=== PATIENT | female | born 1935 | race Caucasian/White ===

== ENCOUNTER 2017-01-25 12:47 | Emergency (ER) | payer MEDICARE, OTHER ==
[~2017-01-25] VITALS: Ht 152.4 cm; Wt 55.0 kg
[~2017-01-25 12:47] MED LIST: ALBUTEROL SUL0.083 % IN; CIPROFLOXACN500 MG PO; DULERA1 AE1 IN; DUONEB IN; FLEXERIL5 MG OR; INVANZ1 GM IJ; IPRATROPIU0.5 MG/3 M NEB; LEVOTHYROXIN100 MCG PO; MACRODANTIN100 MG PO; MYRBETRIQ25 MG PO; NAPROSYN500 MG OR; PREDNISONE10 MG PO; PROTONIX40 M2 PO; ROBITUSSIN10 ML PO; SYNTHROID150 MCG PO; TAM75CAP PO; ZITHROMAX250 MG PO; ZOFRAN4 MG/TAB PO; ZOLOFT50 MG OR; ZOLOFT50 MG PO
[2017-01-25 13:26] LABS: HEMATOCRIT 34.2 % (37.0-47.0); HEMOGLOBIN 11.8 g/dl (12.0-16.0); IMMATURE GRANULOCYTES 0.6 % (0.0-1.0); MEAN CELL VOLUME 95.8 fL CALC (80.0-100.0); MEAN CORPUSCULAR HGB 33.1 pG CALC (26.0-32.0); MEAN CORPUSCULAR HGB CONC 34.5 g/L CALC (32.0-36.0); NEUT# 6.29 thou/uL (2.00-7.15); RED BLOOD COUNT 3.57 mill/uL (4.20-5.60); RED CELL DISTRI WIDTH 12.5 % (11.5-15.5)
[2017-01-25 13:39] LABS: ALBUMIN 3.8 g/dL (3.2-5.0); ALKALINE PHOSPHATASE 82 u/l (38-126); ANION GAP 12 (6-22 (CALC)); BILIRUBIN, TOTAL 0.5 mg/dL (0.0-1.4); BUN 12 mg/dL (8-23); BUN/CREATININE RATIO 17 (12-20 (CALC)); CALCIUM 9.8 mg/dL (8.4-10.2); CARBON DIOXIDE 27 mmol/l (22-30); CHLORIDE 99 mmol/l (95-108); CREATININE 0.7 mg/dL (0.5-1.0); GFR > 60 ML/MIN (>=60 (CALC)); GFR FOR AFR.AMER. > 60 ML/MIN (>=60 (CALC)); GLUCOSE 129 mg/dL (82-115); POTASSIUM 4.1 mmol/l (3.5-5.1); SGOT/AST 29 u/l (9-36); SGPT/ALT 31 u/l (11-66); SODIUM 133 mmol/l (137-146); TOTAL PROTEIN 7.5 g/dL (6.3-8.2)
[2017-01-25 14:03] LABS: URINE BILIRUBIN - DIPSTICK NEGATIVE (NEGATIVE); URINE BLOOD DIPSTICK NEGATIVE (NEGATIVE); URINE COLOR YELLOW; URINE GLUCOSE - DIPSTICK NEGATIVE (NEGATIVE); URINE KETONE NEGATIVE (NEGATIVE); URINE LEUK ESTERASE NEGATIVE (NEGATIVE); URINE PH 6.5 (4.5-8.0); URINE PROTEIN - DIPSTICK NEGATIVE (NEG-TRACE); URINE UROBILINOGEN - DIPSTICK 0.2 E.U./dL (0.2)
[2017-01-25 14:11] LABS: URINE CLARITY TURBID; URINE NITRITE - DIPSTICK POSITIVE (Negative)
[2017-01-25 14:20] LABS: URINE BACTERIA FEW hpf; URINE SQUAMOUS EPITHELIAL CELL FEW EPI/hpf (0-FEW)
[2017-01-25] MEDS ORDERED: PYRIDIUM200 MG PO (14:28)
[2017-01-25] MEDS ORDERED: MACROBID100 MG PO (14:28)
[2017-01-25] MEDS ORDERED: BACTRIM DS1 TAB PO (14:28)
[2017-01-25 14:31] VITALS: BP 153/78
== END 2017-01-25 15:28 | disposition home or self-care (01) ==
LOC: ED 12:47
PROVIDERS: Emergency Medicine
DX: N39.0 Urinary tract infection, site not specified (principal); R53.1 Weakness; B96.20 Unspecified Escherichia coli [E. coli] as the cause of diseases classified elsewhere; R30.0 Dysuria; R35.0 Frequency of micturition
CPT/HCPCS: J0692

== ENCOUNTER 2017-02-06 09:13 | Emergency (ER) | payer MEDICARE, OTHER ==
[~2017-02-06] VITALS: Ht 152.4 cm; Wt 50.0 kg
[~2017-02-06 09:13] MED LIST changes: +BACTRIM DS1 TAB PO; +MACROBID100 MG PO; +PYRIDIUM200 MG PO
[2017-02-06 09:21] VITALS: BP 109/58
[2017-02-06 09:59] LABS: ALBUMIN 3.9 g/dL (3.2-5.0); ALKALINE PHOSPHATASE 68 u/l (38-126); ANION GAP 13 (6-22 (CALC)); BILIRUBIN, TOTAL 0.5 mg/dL (0.0-1.4); BUN 22 mg/dL (8-23); BUN/CREATININE RATIO 29 (12-20 (CALC)); CALCIUM 9.3 mg/dL (8.4-10.2); CARBON DIOXIDE 26 mmol/l (22-30); CHLORIDE 100 mmol/l (95-108); CREATININE 0.8 mg/dL (0.5-1.0); GFR > 60 ML/MIN (>=60 (CALC)); GFR FOR AFR.AMER. > 60 ML/MIN (>=60 (CALC)); GLUCOSE 112 mg/dL (82-115); POTASSIUM 4.1 mmol/l (3.5-5.1); SGOT/AST 19 u/l (9-36); SGPT/ALT 24 u/l (11-66); SODIUM 135 mmol/l (137-146)
[2017-02-06 10:01] LABS: HEMATOCRIT 32.8 % (37.0-47.0); HEMOGLOBIN 11.5 g/dl (12.0-16.0); MANUAL DIFFERENTIAL YES; MEAN CELL VOLUME 96.2 fL CALC (80.0-100.0); MEAN CORPUSCULAR HGB 33.7 pG CALC (26.0-32.0); MEAN CORPUSCULAR HGB CONC 35.1 g/L CALC (32.0-36.0); PLATELET COUNT 257 thou/uL (130-400); RED BLOOD COUNT 3.41 mill/uL (4.20-5.60); RED CELL DISTRI WIDTH 12.1 % (11.5-15.5)
[2017-02-06 10:02] LABS: BAND 2 % (0-8)
[2017-02-06 10:11] LABS: MYOGLOBIN 42 ng/mL (0 - 62)
[2017-02-06 11:05] LABS: URINE BILIRUBIN - DIPSTICK NEGATIVE (NEGATIVE); URINE BLOOD DIPSTICK NEGATIVE (NEGATIVE); URINE CLARITY CLEAR; URINE COLOR YELLOW; URINE GLUCOSE - DIPSTICK NEGATIVE (NEGATIVE); URINE KETONE NEGATIVE (NEGATIVE); URINE LEUK ESTERASE NEGATIVE (NEGATIVE); URINE NITRITE - DIPSTICK NEGATIVE (Negative); URINE PROTEIN - DIPSTICK NEGATIVE (NEG-TRACE); URINE UROBILINOGEN - DIPSTICK 0.2 E.U./dL (0.2)
== END 2017-02-06 14:54 | disposition home or self-care (01) ==
LOC: ED 09:13
PROVIDERS: Emergency Medicine
DX: R53.1 Weakness (principal); I10 Essential (primary) hypertension; J44.9 Chronic obstructive pulmonary disease, unspecified; B96.20 Unspecified Escherichia coli [E. coli] as the cause of diseases classified elsewhere; R94.31 Abnormal electrocardiogram [ECG] [EKG]; Z85.43 Personal history of malignant neoplasm of ovary
CPT/HCPCS: J1335

== ENCOUNTER 2017-03-05 10:31 | Inpatient (IN) | payer MEDICARE, OTHER ==
[~2017-03-05] VITALS: Ht 152.4 cm; Wt 56.8 kg
[2017-03-05 11:26] LABS: HEMATOCRIT 32.1 % (37.0-47.0); IMMATURE GRANULOCYTES 0.3 % (0.0-1.0); MEAN CELL VOLUME 93.9 fL CALC (80.0-100.0); MEAN CORPUSCULAR HGB 32.2 pG CALC (26.0-32.0); MEAN CORPUSCULAR HGB CONC 34.3 g/L CALC (32.0-36.0); NEUT# 11.28 thou/uL (2.00-7.15); RED BLOOD COUNT 3.42 mill/uL (4.20-5.60); RED CELL DISTRI WIDTH 13.7 % (11.5-15.5)
[2017-03-05] MEDS ORDERED: AZO CRANBERY UR1 CAP PO (11:31)
[2017-03-05 11:50] LABS: ALBUMIN 3.5 g/dL (3.2-5.0); ALKALINE PHOSPHATASE 68 u/l (38-126); ANION GAP 14 (6-22 (CALC)); BILIRUBIN, TOTAL 0.6 mg/dL (0.0-1.4); BUN 15 mg/dL (8-23); BUN/CREATININE RATIO 23 (12-20 (CALC)); CALCIUM 9.1 mg/dL (8.4-10.2); CARBON DIOXIDE 24 mmol/l (22-30); CHLORIDE 98 mmol/l (95-108); CREATININE 0.7 mg/dL (0.5-1.0); GFR > 60 ML/MIN (>=60 (CALC)); GFR FOR AFR.AMER. > 60 ML/MIN (>=60 (CALC)); GLUCOSE 130 mg/dL (82-115); SGOT/AST 26 u/l (9-36); SGPT/ALT 33 u/l (11-66); SODIUM 132 mmol/l (137-146); TOTAL PROTEIN 7.6 g/dL (6.3-8.2)
[2017-03-05 12:03] LABS: MYOGLOBIN 22 ng/mL (0 - 62)
[2017-03-05 12:57] LABS: URINE BILIRUBIN - DIPSTICK NEGATIVE (NEGATIVE); URINE CLARITY CLEAR; URINE COLOR YELLOW; URINE GLUCOSE - DIPSTICK NEGATIVE (NEGATIVE); URINE KETONE NEGATIVE (NEGATIVE); URINE LEUK ESTERASE NEGATIVE (NEGATIVE); URINE PROTEIN - DIPSTICK NEGATIVE (NEG-TRACE); URINE UROBILINOGEN - DIPSTICK 0.2 E.U./dL (0.2)
[2017-03-05 12:59] LABS: URINE NITRITE - DIPSTICK POSITIVE (Negative)
[2017-03-05 13:07] LABS: URINE BACTERIA RARE hpf; URINE BLOOD DIPSTICK NEGATIVE (NEGATIVE); URINE RBC 0-2 RBC/hpf (0-5); URINE WBC 0-2 WBC/hpf (0-5)
[2017-03-05 13:55] LABS: C. DIFFICILE TOXIN A&B POSITIVE (NEGATIVE)
[2017-03-05 14:30] VITALS: BP 140/85
[2017-03-05 20:05] VITALS: BP 132/62; BP 143/76
[2017-03-05 23:50] VITALS: BP 136/60
[2017-03-06 04:06] VITALS: BP 115/69
[2017-03-06 06:21] LABS: HEMOGLOBIN 9.7 g/dl (12.0-16.0); IMMATURE GRANULOCYTES 0.3 % (0.0-1.0); MEAN CELL VOLUME 95.1 fL CALC (80.0-100.0); MEAN CORPUSCULAR HGB 31.8 pG CALC (26.0-32.0); MEAN CORPUSCULAR HGB CONC 33.4 g/L CALC (32.0-36.0); NEUT# 6.18 thou/uL (2.00-7.15); RED BLOOD COUNT 3.05 mill/uL (4.20-5.60); RED CELL DISTRI WIDTH 13.8 % (11.5-15.5)
[2017-03-06 06:43] LABS: ANION GAP 11 (6-22 (CALC)); BUN 11 mg/dL (8-23); BUN/CREATININE RATIO 19 (12-20 (CALC)); CALCIUM 8.2 mg/dL (8.4-10.2); CARBON DIOXIDE 23 mmol/l (22-30); CHLORIDE 102 mmol/l (95-108); CREATININE 0.6 mg/dL (0.5-1.0); GFR > 60 ML/MIN (>=60 (CALC)); GFR FOR AFR.AMER. > 60 ML/MIN (>=60 (CALC)); GLUCOSE 94 mg/dL (82-115); POTASSIUM 3.7 mmol/l (3.5-5.1); SODIUM 132 mmol/l (137-146)
[2017-03-06 08:21] VITALS: BP 100/42
[2017-03-06 10:46] VITALS: BP 86/61
[2017-03-06 15:14] VITALS: BP 88/53
[2017-03-06 19:35] VITALS: BP 107/59
[2017-03-07] VITALS (7 sets, daily range): BP systolic 100–120; BP diastolic 59–76
[2017-03-07 06:16] LABS: HEMATOCRIT 28.7 % (37.0-47.0); HEMOGLOBIN 9.5 g/dl (12.0-16.0); IMMATURE GRANULOCYTES 0.5 % (0.0-1.0); MEAN CORPUSCULAR HGB 32.1 pG CALC (26.0-32.0); MEAN CORPUSCULAR HGB CONC 33.1 g/L CALC (32.0-36.0); NEUT# 2.85 thou/uL (2.00-7.15); RED BLOOD COUNT 2.96 mill/uL (4.20-5.60); RED CELL DISTRI WIDTH 13.9 % (11.5-15.5)
[2017-03-07 06:34] LABS: ANION GAP 9 (6-22 (CALC)); BUN 12 mg/dL (8-23); BUN/CREATININE RATIO 17 (12-20 (CALC)); CALCIUM 8.2 mg/dL (8.4-10.2); CARBON DIOXIDE 22 mmol/l (22-30); CHLORIDE 107 mmol/l (95-108); CREATININE 0.7 mg/dL (0.5-1.0); GFR > 60 ML/MIN (>=60 (CALC)); GFR FOR AFR.AMER. > 60 ML/MIN (>=60 (CALC)); GLUCOSE 88 mg/dL (82-115); POTASSIUM 3.1 mmol/l (3.5-5.1); SODIUM 135 mmol/l (137-146)
[2017-03-08 05:30] VITALS: BP 140/63
[2017-03-08 06:22] LABS: HEMATOCRIT 27.1 % (37.0-47.0); IMMATURE GRANULOCYTES 0.6 % (0.0-1.0); MEAN CELL VOLUME 95.8 fL CALC (80.0-100.0); MEAN CORPUSCULAR HGB 31.8 pG CALC (26.0-32.0); MEAN CORPUSCULAR HGB CONC 33.2 g/L CALC (32.0-36.0); NEUT# 2.62 thou/uL (2.00-7.15); RED BLOOD COUNT 2.83 mill/uL (4.20-5.60); RED CELL DISTRI WIDTH 13.7 % (11.5-15.5)
[2017-03-08 06:37] LABS: ANION GAP 7 (6-22 (CALC)); BUN 8 mg/dL (8-23); BUN/CREATININE RATIO 13 (12-20 (CALC)); CARBON DIOXIDE 23 mmol/l (22-30); CHLORIDE 108 mmol/l (95-108); CREATININE 0.6 mg/dL (0.5-1.0); GFR > 60 ML/MIN (>=60 (CALC)); GFR FOR AFR.AMER. > 60 ML/MIN (>=60 (CALC)); GLUCOSE 82 mg/dL (82-115); POTASSIUM 3.5 mmol/l (3.5-5.1); SODIUM 135 mmol/l (137-146)
[2017-03-08 08:00] VITALS: BP 114/52
[2017-03-08 11:10] VITALS: BP 119/53
[2017-03-08 16:31] VITALS: BP 121/66
[2017-03-08 19:01] VITALS: BP 130/82
[2017-03-08 23:31] VITALS: BP 111/68
[2017-03-09 04:28] VITALS: BP 106/66
[2017-03-09 05:38] LABS: HEMATOCRIT 29.2 % (37.0-47.0); HEMOGLOBIN 9.7 g/dl (12.0-16.0); IMMATURE GRANULOCYTES 0.9 % (0.0-1.0); MEAN CELL VOLUME 94.8 fL CALC (80.0-100.0); MEAN CORPUSCULAR HGB 31.5 pG CALC (26.0-32.0); MEAN CORPUSCULAR HGB CONC 33.2 g/L CALC (32.0-36.0); NEUT# 3.13 thou/uL (2.00-7.15); RED BLOOD COUNT 3.08 mill/uL (4.20-5.60); RED CELL DISTRI WIDTH 13.7 % (11.5-15.5)
[2017-03-09 05:45] LABS: ANION GAP 7 (6-22 (CALC)); BUN 7 mg/dL (8-23); BUN/CREATININE RATIO 13 (12-20 (CALC)); CALCIUM 8.1 mg/dL (8.4-10.2); CARBON DIOXIDE 25 mmol/l (22-30); CHLORIDE 105 mmol/l (95-108); CREATININE 0.6 mg/dL (0.5-1.0); GFR > 60 ML/MIN (>=60 (CALC)); GFR FOR AFR.AMER. > 60 ML/MIN (>=60 (CALC)); GLUCOSE 88 mg/dL (82-115); POTASSIUM 3.6 mmol/l (3.5-5.1); SODIUM 133 mmol/l (137-146)
[2017-03-09 08:15] VITALS: BP 132/82
[2017-03-09 11:01] VITALS: BP 109/76
[2017-03-09] MEDS ORDERED: INVANZ1 GM IJ (11:28)
[2017-03-09] MEDS ORDERED: RESTORIL15 MG PO (11:28)
[2017-03-09] MEDS ORDERED: METRONIDAZOL500 MG PO (11:28)
[2017-03-09] MEDS ORDERED: VANCOMYCIN HCL125 MG PO (11:28)
[2017-03-09] MEDS ORDERED: FLORASTOR250 M1 PO (11:28)
== END 2017-03-09 14:39 | DRG 371 ==
LOC: ENPENDDIS → ED 10:31 → ED-I 12:30 → ED 13:27 → MS2 13:28
PROVIDERS: Emergency Medicine; ADMIT Internal Medicine; ATTEND Internal Medicine
DX: A04.7 Enterocolitis due to Clostridium difficile (principal); J69.0 Pneumonitis due to inhalation of food and vomit; N39.0 Urinary tract infection, site not specified; E87.1 Hypo-osmolality and hyponatremia; E03.9 Hypothyroidism, unspecified; F32.9 Major depressive disorder, single episode, unspecified; K44.9 Diaphragmatic hernia without obstruction or gangrene; H91.90 Unspecified hearing loss, unspecified ear; D64.9 Anemia, unspecified; K21.9 Gastro-esophageal reflux disease without esophagitis; B96.20 Unspecified Escherichia coli [E. coli] as the cause of diseases classified elsewhere; E86.0 Dehydration; Z85.43 Personal history of malignant neoplasm of ovary; Z16.24 Resistance to multiple antibiotics; Z88.0 Allergy status to penicillin; Z87.440 Personal history of urinary (tract) infections
CPT/HCPCS: J1650

== ENCOUNTER 2017-06-18 09:46 | Inpatient (IN) | payer MEDICARE, OTHER ==
[~2017-06-18] VITALS: Ht 152.4 cm; Wt 54.6 kg
[~2017-06-18 09:46] MED LIST changes: +AZO CRANBERY UR1 CAP PO; +FLORASTOR250 M1 PO; +METRONIDAZOL500 MG PO; +RESTORIL15 MG PO; +VANCOMYCIN HCL125 MG PO
[2017-06-18 10:30] LABS: HEMATOCRIT 35.2 % (37.0-47.0); HEMOGLOBIN 11.9 g/dl (12.0-16.0); IMMATURE GRANULOCYTES 0.6 % (0.0-1.0); MEAN CELL VOLUME 97.8 fL CALC (80.0-100.0); MEAN CORPUSCULAR HGB 33.1 pG CALC (26.0-32.0); MEAN CORPUSCULAR HGB CONC 33.8 g/L CALC (32.0-36.0); NEUT# 11.62 thou/uL (2.00-7.15); RED BLOOD COUNT 3.6 mill/uL (4.20-5.60); RED CELL DISTRI WIDTH 13.9 % (11.5-15.5)
[2017-06-18 10:47] LABS: ALBUMIN 3.9 g/dL (3.2-5.0); ALKALINE PHOSPHATASE 87 u/l (38-126); AMYLASE 71 u/l (30-110); ANION GAP 12 (6-22 (CALC)); BILIRUBIN, TOTAL 0.7 mg/dL (0.0-1.4); BUN 15 mg/dL (8-23); BUN/CREATININE RATIO 22 (12-20 (CALC)); CALCIUM 9.1 mg/dL (8.4-10.2); CARBON DIOXIDE 27 mmol/l (22-30); CHLORIDE 101 mmol/l (95-108); CREATININE 0.7 mg/dL (0.5-1.0); GFR > 60 ML/MIN (>=60 (CALC)); GFR FOR AFR.AMER. > 60 ML/MIN (>=60 (CALC)); GLUCOSE 126 mg/dL (82-115); LIPASE 24 u/l (23-300); POTASSIUM 3.9 mmol/l (3.5-5.1); SGOT/AST 31 u/l (9-36); SGPT/ALT 41 u/l (11-66); SODIUM 135 mmol/l (137-146); TOTAL PROTEIN 8.2 g/dL (6.3-8.2)
[2017-06-18 10:48] LABS: MAGNESIUM 1.8 mg/dL (1.6-2.3)
[2017-06-18 10:59] LABS: MYOGLOBIN 22 ng/mL (0 - 62)
[2017-06-18 14:44] VITALS: BP 159/107
[2017-06-18 16:23] VITALS: BP 130/83
[2017-06-18 19:21] LABS: C. DIFFICILE TOXIN A&B POSITIVE (NEGATIVE)
[2017-06-18 19:34] LABS: URINE BILIRUBIN - DIPSTICK NEGATIVE (NEGATIVE); URINE BLOOD DIPSTICK LARGE (NEGATIVE); URINE CLARITY SLIGHT CLOUDY; URINE COLOR YELLOW; URINE GLUCOSE - DIPSTICK NEGATIVE (NEGATIVE); URINE KETONE NEGATIVE (NEGATIVE); URINE LEUK ESTERASE NEGATIVE (Negative); URINE NITRITE - DIPSTICK POSITIVE (Negative); URINE PROTEIN - DIPSTICK NEGATIVE (NEG-TRACE); URINE SPECIFIC GRAVITY 1.025; URINE UROBILINOGEN - DIPSTICK 0.2 E.U./dL (0.2)
[2017-06-18 19:37] VITALS: BP 119/74
[2017-06-18 19:44] LABS: URINE BACTERIA MANY hpf; URINE RBC 25-50 RBC/hpf (0-5); URINE SQUAMOUS EPITHELIAL CELL FEW EPI/hpf (0-FEW)
[2017-06-18 19:47] LABS: INFLUENZA A NONE DETECTED (NONE DETECT); INFLUENZA B NONE DETECTED (NONE DETECT)
[2017-06-18 22:00] VITALS: BP 114/76
[2017-06-18 23:12] VITALS: BP 114/76
[2017-06-19 05:25] VITALS: BP 110/52
[2017-06-19 06:59] LABS: HEMATOCRIT 28.6 % (37.0-47.0); HEMOGLOBIN 9.8 g/dl (12.0-16.0); MEAN CELL VOLUME 96.9 fL CALC (80.0-100.0); MEAN CORPUSCULAR HGB 33.2 pG CALC (26.0-32.0); MEAN CORPUSCULAR HGB CONC 34.3 g/L CALC (32.0-36.0); RED BLOOD COUNT 2.95 mill/uL (4.20-5.60); RED CELL DISTRI WIDTH 13.7 % (11.5-15.5)
[2017-06-19 07:15] LABS: ANION GAP 10 (6-22 (CALC)); BUN 11 mg/dL (8-23); BUN/CREATININE RATIO 18 (12-20 (CALC)); CALCIUM 8.5 mg/dL (8.4-10.2); CARBON DIOXIDE 23 mmol/l (22-30); CHLORIDE 105 mmol/l (95-108); CREATININE 0.6 mg/dL (0.5-1.0); GFR > 60 ML/MIN (>=60 (CALC)); GFR FOR AFR.AMER. > 60 ML/MIN (>=60 (CALC)); GLUCOSE 95 mg/dL (82-115); POTASSIUM 3.2 mmol/l (3.5-5.1); SODIUM 135 mmol/l (137-146)
[2017-06-19 07:46] VITALS: BP 121/54
[2017-06-19 11:00] VITALS: BP 130/64
[2017-06-19 16:55] VITALS: BP 132/70
[2017-06-19 19:00] VITALS: BP 140/64
[2017-06-19 22:00] VITALS: BP 116/52
[2017-06-20 05:40] VITALS: BP 136/66
[2017-06-20 05:51] LABS: HEMATOCRIT 28.3 % (37.0-47.0); HEMOGLOBIN 9.8 g/dl (12.0-16.0); IMMATURE GRANULOCYTES 0.3 % (0.0-1.0); MEAN CELL VOLUME 96.3 fL CALC (80.0-100.0); MEAN CORPUSCULAR HGB 33.3 pG CALC (26.0-32.0); MEAN CORPUSCULAR HGB CONC 34.6 g/L CALC (32.0-36.0); NEUT# 4.1 thou/uL (2.00-7.15); RED BLOOD COUNT 2.94 mill/uL (4.20-5.60); RED CELL DISTRI WIDTH 13.2 % (11.5-15.5)
[2017-06-20 06:03] LABS: ANION GAP 10 (6-22 (CALC)); BUN 8 mg/dL (8-23); BUN/CREATININE RATIO 15 (12-20 (CALC)); CALCIUM 8.3 mg/dL (8.4-10.2); CARBON DIOXIDE 21 mmol/l (22-30); CHLORIDE 107 mmol/l (95-108); CREATININE 0.6 mg/dL (0.5-1.0); GFR > 60 ML/MIN (>=60 (CALC)); GFR FOR AFR.AMER. > 60 ML/MIN (>=60 (CALC)); GLUCOSE 91 mg/dL (82-115); MAGNESIUM 1.7 mg/dL (1.6-2.3); POTASSIUM 3.1 mmol/l (3.5-5.1); SODIUM 135 mmol/l (137-146)
[2017-06-20 07:46] VITALS: BP 148/77
[2017-06-20 11:37] VITALS: BP 128/55
[2017-06-20 15:38] VITALS: BP 143/61
[2017-06-20 19:51] VITALS: BP 132/75
[2017-06-21] VITALS (7 sets, daily range): BP systolic 127–146; BP diastolic 65–78
[2017-06-21 07:24] LABS: HEMATOCRIT 29.1 % (37.0-47.0); HEMOGLOBIN 9.9 g/dl (12.0-16.0); MEAN CORPUSCULAR HGB 32.7 pG CALC (26.0-32.0); RED BLOOD COUNT 3.03 mill/uL (4.20-5.60); RED CELL DISTRI WIDTH 13.3 % (11.5-15.5)
[2017-06-21 07:57] LABS: ANION GAP 11 (6-22 (CALC)); BUN 5 mg/dL (8-23); BUN/CREATININE RATIO 8 (12-20 (CALC)); CALCIUM 8.5 mg/dL (8.4-10.2); CARBON DIOXIDE 21 mmol/l (22-30); CHLORIDE 109 mmol/l (95-108); CREATININE 0.6 mg/dL (0.5-1.0); GFR > 60 ML/MIN (>=60 (CALC)); GFR FOR AFR.AMER. > 60 ML/MIN (>=60 (CALC)); GLUCOSE 91 mg/dL (82-115); POTASSIUM 3.7 mmol/l (3.5-5.1); SODIUM 137 mmol/l (137-146)
[2017-06-22 06:18] LABS: ANION GAP 9 (6-22 (CALC)); BUN 5 mg/dL (8-23); BUN/CREATININE RATIO 8 (12-20 (CALC)); CALCIUM 8.5 mg/dL (8.4-10.2); CARBON DIOXIDE 21 mmol/l (22-30); CHLORIDE 111 mmol/l (95-108); CREATININE 0.6 mg/dL (0.5-1.0); GFR > 60 ML/MIN (>=60 (CALC)); GFR FOR AFR.AMER. > 60 ML/MIN (>=60 (CALC)); GLUCOSE 85 mg/dL (82-115); MAGNESIUM 1.8 mg/dL (1.6-2.3); POTASSIUM 3.5 mmol/l (3.5-5.1); SODIUM 137 mmol/l (137-146)
[2017-06-22 06:24] VITALS: BP 136/63
[2017-06-22 07:50] VITALS: BP 148/82
[2017-06-22] MEDS ORDERED: VANCOMYCIN HCL125 MG PO (12:54)
[2017-06-22] MEDS ORDERED: FLORASTOR250 M1 PO (12:54)
[2017-06-22] MEDS ORDERED: DUONEB IN (12:56)
== END 2017-06-22 15:43 | disposition home health service (06) | DRG 872 ==
LOC: ED 09:46 → ED-I 13:04 → ED 13:50 → MS2 13:51
PROVIDERS: Emergency Medicine; Nurse Practitioner Family; ADMIT Internal Medicine; ATTEND Internal Medicine
DX: A41.9 Sepsis, unspecified organism (principal); J44.9 Chronic obstructive pulmonary disease, unspecified; A04.71 Enterocolitis due to Clostridium difficile, recurrent; N39.0 Urinary tract infection, site not specified; E86.0 Dehydration; E03.9 Hypothyroidism, unspecified; I10 Essential (primary) hypertension; F32.9 Major depressive disorder, single episode, unspecified; K44.9 Diaphragmatic hernia without obstruction or gangrene; R32 Unspecified urinary incontinence; S30.814A Abrasion of vagina and vulva, initial encounter; X58.XXXA Exposure to other specified factors, initial encounter; B96.20 Unspecified Escherichia coli [E. coli] as the cause of diseases classified elsewhere; Z16.24 Resistance to multiple antibiotics; Z85.43 Personal history of malignant neoplasm of ovary

== ENCOUNTER 2017-07-15 14:44 | Inpatient (IN) | payer MEDICARE, OTHER ==
[~2017-07-15] VITALS: Ht 152.4 cm; Wt 52.0 kg
--- NOTE | 2017-07-15 14:55 | NUR ---
PT TO ROOM FOR EXAM PER EMS
--- NOTE | 2017-07-15 15:18 | NUR ---
PT ADVISED OF WAIT TIME FOR LAB RESULTS. ADVISED THAT IF SHE NEEDED TO HAVE BM TO ADVISED NURSE FOR ASSISTANCE. PT VOICED UNDERSTANDING.
[2017-07-15 15:26] LABS: HEMATOCRIT 34.3 % (37.0-47.0); HEMOGLOBIN 11.5 g/dl (12.0-16.0); IMMATURE GRANULOCYTES 0.3 % (0.0-1.0); MEAN CELL VOLUME 98.8 fL CALC (80.0-100.0); MEAN CORPUSCULAR HGB 33.1 pG CALC (26.0-32.0); MEAN CORPUSCULAR HGB CONC 33.5 g/L CALC (32.0-36.0); NEUT# 13.16 thou/uL (2.00-7.15); RED BLOOD COUNT 3.47 mill/uL (4.20-5.60); RED CELL DISTRI WIDTH 12.9 % (11.5-15.5)
[2017-07-15 15:44] LABS: ALBUMIN 3.6 g/dL (3.2-5.0); ALKALINE PHOSPHATASE 74 u/l (38-126); ANION GAP 16 (6-22 (CALC)); BILIRUBIN, TOTAL 0.5 mg/dL (0.0-1.4); BUN 28 mg/dL (8-23); BUN/CREATININE RATIO 39 (12-20 (CALC)); CALCIUM 10.1 mg/dL (8.4-10.2); CARBON DIOXIDE 23 mmol/l (22-30); CHLORIDE 101 mmol/l (95-108); CREATININE 0.7 mg/dL (0.5-1.0); GFR > 60 ML/MIN (>=60 (CALC)); GFR FOR AFR.AMER. > 60 ML/MIN (>=60 (CALC)); GLUCOSE 139 mg/dL (82-115); LIPASE 15 u/l (23-300); POTASSIUM 3.8 mmol/l (3.5-5.1); SGOT/AST 29 u/l (9-36); SGPT/ALT 36 u/l (11-66); SODIUM 136 mmol/l (137-146); TOTAL PROTEIN 7.7 g/dL (6.3-8.2)
--- NOTE | 2017-07-15 15:50 | NUR ---
SBAR PRINTED TO FLOOR
--- NOTE | 2017-07-15 16:25 | NUR ---
STOOL SPECIMEN COLLECTED FROM PT. IV FLUIDS CONTINUE SITE HEALTHY. NO APPARENT DISTRESS.
--- NOTE | 2017-07-15 16:42 | NUR ---
ATTEMPT TO CALL REPORT NURSE UNAVAILABLE
[2017-07-15 17:00] LABS: C. DIFFICILE TOXIN A&B NEGATIVE (NEGATIVE)
--- NOTE | 2017-07-15 17:07 | NUR ---
REPORT PROVIDED TO MYLES AYALA ON [employer]. PT TO [employer] VIA STRETCHER. IV SITE HEALTHY.
--- NOTE | 2017-07-15 17:12 | NUR ---
PT.ARRIVED TO FLOOR VIA STRETCHER ACCOMPANIED BY CRIS[facility] OF ED. PT.AMBULATED TO STANDING SCALE AND TO BED W/1X ASSIST. PT.DENIES ANY PAIN AND DOES NOT SHOW ANY OBSERVABLE DISTRESS. PT.IS ASSISTED INTO BED, ORIENTED TO ROOM, LIGHTS, CALL SYSTEM, POC DISCUSSED AND PT.INSTRUCTED TO CALL IF SHE NEEDS TO AMBULATE. CRACKLES AUDIBLE IN LOWER LEFT LUNG/ALL OTHER LUNG CROWE CLEAR. NEURO'S INTACT, PT.LOCX3. PT.CLEANED OF YELLOW,GRAINY LOOSE BOWEL.
[2017-07-15 17:28] VITALS: BP 121/70
--- NOTE | 2017-07-15 18:43 | NUR ---
SPOT CHECK. SPO2 ON RA 96%.
--- NOTE | 2017-07-15 18:45 | NUR ---
PT.CLEANED OF INCONTINENT YELLOW GRAINY BOWEL. AREA IS REDDENED/BARRIER CREAM APPLIED. PT.REQUESTED A BRIEF, BUT I EXPLAINED TO HER THAT WE REALLY WANTED HER TO NOT HAVE ANY URINE OR BOWEL ENCLOSED AGAINST HER. PT.LEFT W/OUT BRIEF.
[2017-07-15 19:25] VITALS: BP 114/56
--- NOTE | 2017-07-15 20:00 | NUR ---
PATIENT RESTING IN BED WITH HOB ELEVATED-AWAKE ALERT AND ORIENTEDX3 WITH NO COMPLAINTS AT THIS TIME. IV SITE TO RIGHT AC WITH IVF NS PATENT AND INFUSING AT 100CC/HR. SITE APPEARS HEALTHY AT THIS TIME. PATIENT REFUSING TEDS AT THIS TIME. SAFETY PRECAUTIONS REINFORCED. CALL LIGHT IN REACH. WILL CONT TO MONITOR.
--- NOTE | 2017-07-16 | NUR ---
PATIENT RESTING IN BED-APPEARS SLEEPING WITH EYES CLOSED. CALL LIGHT IN REACH. WILL CONT TO MONITOR.
[2017-07-16 04:14] VITALS: BP 101/55
--- NOTE | 2017-07-16 04:28 | NUR ---
PATIENT APPEARS SLEEPING AT THIS TIME. VS TAKEN AND RECORDED. IVF PATENT AND INFUSING AT 100CC/HR. SITE APPEARS HEALTHY AT THIS TIME. CALL LIGHT IN REACH. WILL CONT TO MONITOR.
--- NOTE | 2017-07-16 05:50 | NUR ---
PATIENT INCONT OF MODERATE AMT OF URINE. PADS CHANGED AND BRAYDEN-CARE DONE WITH SOAP AND WATER. BARRIER CREAM APPLIED TO RED PERINEAL AREA. TURNED AND REPOSITIONED. FLAGYL INFUSING ORDERED. SAFETY PRECAUTION REINFORCED. CALL LIGHT IN REACH. WILL CONT TO MONITOR.
[2017-07-16 06:04] LABS: HEMATOCRIT 27.2 % (37.0-47.0); HEMOGLOBIN 9.1 g/dl (12.0-16.0); IMMATURE GRANULOCYTES 0.4 % (0.0-1.0); MEAN CELL VOLUME 99.6 fL CALC (80.0-100.0); MEAN CORPUSCULAR HGB 33.3 pG CALC (26.0-32.0); MEAN CORPUSCULAR HGB CONC 33.5 g/L CALC (32.0-36.0); NEUT# 5.61 thou/uL (2.00-7.15); RED BLOOD COUNT 2.73 mill/uL (4.20-5.60); RED CELL DISTRI WIDTH 12.9 % (11.5-15.5)
[2017-07-16 06:15] LABS: ANION GAP 10 (6-22 (CALC)); BUN 23 mg/dL (8-23); BUN/CREATININE RATIO 34 (12-20 (CALC)); CALCIUM 8.8 mg/dL (8.4-10.2); CARBON DIOXIDE 24 mmol/l (22-30); CHLORIDE 105 mmol/l (95-108); CREATININE 0.7 mg/dL (0.5-1.0); GFR > 60 ML/MIN (>=60 (CALC)); GFR FOR AFR.AMER. > 60 ML/MIN (>=60 (CALC)); GLUCOSE 95 mg/dL (82-115); POTASSIUM 3.2 mmol/l (3.5-5.1); SODIUM 135 mmol/l (137-146)
--- NOTE | 2017-07-16 07:00 | NUR ---
SHIFT CHANGE REPORT FROM BERENICE ADAME SLEEPING AT THIS TIME, BREATHING EVEN AND NON-LABORED ON R/A, IVF INFUSING, NO SIGN DISCOMFORT, CALL WEBB IN REACH.
--- NOTE | 2017-07-16 08:23 | NUR ---
PT CONSENTED TO RECEIVE INFLUENZA VACCINE. ALREADY RECEIVED THIS YEAR AT [facility] ON 06/19/17.
[2017-07-16 09:00] VITALS: BP 99/50
[2017-07-16] MEDS ORDERED: TYLENOL325 MG PO (10:00)
[2017-07-16] MEDS ORDERED: MULTIVITAMI1 PO (10:01)
[2017-07-16] MEDS ORDERED: CYANOCOBAL1000 MCG/M IM (10:03)
--- NOTE | 2017-07-16 10:07 | NUR ---
COMPLETED MED REC WITH PT (DIRECT ADMIT) - PT DID NOT HAVE A MED LIST WITH HER BUT WAS ABLE TO CONFIRM MEDS I ASKED ABOUT THEM FROM PREVIOUS ADMISSION. SHE IS USING NEBULIZER DIFFERENTLY THAN PRESCRIBED AND ALSO TAKING NEW OTC MEDS (TYLENOL, CRANBERRY, MULTIVIT). SHE FEELS SHE IS TAKING ONE THAT WASN'T ON OUR LIST, INSTRUCTED PT TO LET NURSE KNOW IF SHE THINKS OF IT. NO OTHER MED LISTED IN CLAIMS HISTORY. PT HAD NO CONCERNS OR QUESTIONS. ADVISED WE WOULD SPEAK WITH HER AGAIN THIS AFTERNOON DURING ROUNDS.
[2017-07-16 11:50] LABS: URINE BILIRUBIN - DIPSTICK NEGATIVE (NEGATIVE); URINE BLOOD DIPSTICK TRACE-INTACT (NEGATIVE); URINE COLOR YELLOW; URINE GLUCOSE - DIPSTICK NEGATIVE (NEGATIVE); URINE LEUK ESTERASE SMALL (Negative); URINE NITRITE - DIPSTICK POSITIVE (Negative); URINE PROTEIN - DIPSTICK TRACE mg/dL (NEG-TRACE); URINE SPECIFIC GRAVITY 1.025; URINE UROBILINOGEN - DIPSTICK 0.2 E.U./dL (0.2)
[2017-07-16 11:57] LABS: URINE CLARITY CLEAR; URINE KETONE Negative (NEGATIVE)
[2017-07-16 11:58] LABS: URINE RBC 0-2 RBC/hpf (0-5)
[2017-07-16 11:59] LABS: URINE BACTERIA FEW hpf; URINE EPITHELIAL CELLS FEW EPI/hpf (0-FEW); URINE YEAST FEW hpf
[2017-07-16 15:43] VITALS: BP 126/76
[2017-07-16 19:00] VITALS: BP 129/77
--- NOTE | 2017-07-16 19:30 | NUR ---
RESTING IN BED AWAKE ALERT AND ORIENTEDX3 WITH NO COMPLAINTS AT THIS TIME. IV SITE TO RIGHT WRIST INTACT WITH IVF NS 20KCL INFUSING AT 100CC/HR. AWAITING CT ABD PELVIS. SAFETY PRECAUTIONS REINFORCED. CALL LIGHT IN REACH. WILL CONT TO MONITOR.
--- NOTE | 2017-07-16 20:30 | NUR ---
PATIENT TO RADIOLOGY FOR CT VIA WHEELCHAIR AND RETURNED TO [facility]. ASSISTED BACK TO BED. NO COMPLAINTS AT THIS TIME. CALL LIGHT IN REACH. WADNA CONT TO MONITOR.
--- NOTE | 2017-07-16 22:00 | NUR ---
PATIENT MEDICATED FOR SLEEP WITH RESTORIL PER PATIENT REQUEST. CALL LIGHT IN REACH. WILL CONT TO MONITOR.
--- NOTE | 2017-07-16 23:58 | NUR ---
VANCO PO GIVEN ORDERED-PATIENT IS STILL AWAKE WITH TV ON-NO COMPLAINTS. IVF PATENT AND INFUSING AT 100CC/HR. CALL LIGHT IN REACH. WILL CONT TO MONITOR.
[2017-07-17 05:20] VITALS: BP 123/79
[2017-07-17 06:07] LABS: HEMATOCRIT 28.7 % (37.0-47.0); HEMOGLOBIN 9.7 g/dl (12.0-16.0); IMMATURE GRANULOCYTES 0.5 % (0.0-1.0); MEAN CELL VOLUME 99.7 fL CALC (80.0-100.0); MEAN CORPUSCULAR HGB 33.7 pG CALC (26.0-32.0); MEAN CORPUSCULAR HGB CONC 33.8 g/L CALC (32.0-36.0); NEUT# 4.19 thou/uL (2.00-7.15); RED BLOOD COUNT 2.88 mill/uL (4.20-5.60); RED CELL DISTRI WIDTH 12.5 % (11.5-15.5)
[2017-07-17 06:23] LABS: ANION GAP 9 (6-22 (CALC)); BUN 13 mg/dL (8-23); BUN/CREATININE RATIO 19 (12-20 (CALC)); CALCIUM 8.4 mg/dL (8.4-10.2); CARBON DIOXIDE 23 mmol/l (22-30); CHLORIDE 109 mmol/l (95-108); CREATININE 0.7 mg/dL (0.5-1.0); GFR > 60 ML/MIN (>=60 (CALC)); GFR FOR AFR.AMER. > 60 ML/MIN (>=60 (CALC)); GLUCOSE 87 mg/dL (82-115); MAGNESIUM 1.8 mg/dL (1.6-2.3); POTASSIUM 3.9 mmol/l (3.5-5.1); SODIUM 137 mmol/l (137-146)
--- NOTE | 2017-07-17 07:17 | NUR ---
SHIFT CHANGE REPORT FROM BERENICE ADAME SLEEPING AT THIS TIME, BREATHING EVEN AND NON-LABORED, NO SIGN DISCOMFORT, IVF INFUSING, CALL WEBB IN REACH.
--- NOTE | 2017-07-17 08:10 | NUR ---
PT AWAKE ALERT AND ORIENTED AT THIS TIME, ASSISTED OOB TO BSC, BRAYDEN-CARE GIVEN, ASSISTED TO RECLINER AND SET UP FOR MEAL.
[2017-07-17 08:29] VITALS: BP 140/75
[2017-07-17 11:17] LABS: URINE BILIRUBIN - DIPSTICK NEGATIVE (NEGATIVE); URINE BLOOD DIPSTICK NEGATIVE (NEGATIVE); URINE COLOR YELLOW; URINE GLUCOSE - DIPSTICK NEGATIVE (NEGATIVE); URINE KETONE NEGATIVE (NEGATIVE); URINE PROTEIN - DIPSTICK NEGATIVE (NEG-TRACE); URINE UROBILINOGEN - DIPSTICK 0.2 E.U./dL (0.2)
[2017-07-17 11:18] LABS: URINE LEUK ESTERASE SMALL (NEGATIVE); URINE NITRITE - DIPSTICK POSITIVE (Negative)
[2017-07-17 11:19] LABS: URINE CLARITY CLOUDY
[2017-07-17 11:20] LABS: URINE BACTERIA MANY hpf; URINE EPITHELIAL CELLS MODERATE EPI/hpf (0-FEW)
--- NOTE | 2017-07-17 12:05 | NUR ---
REPOSITIONED IN RECLINER FOR MEAL, COMMUNICATED IN WRITING ALL PROCEDURES/ACTIVITIES TO BE PERFORMED HEARING AIDS BATTRIES ARE NON-WORKING AT THIS TIME. CALL WEBB IN REACH.
--- NOTE | 2017-07-17 13:10 | NUR ---
INCONTINENT OF BOWEL, ASSISTED TO BSC, BRAYDEN CARE GIVEN, ASSISTED BACK TO BED, CALL WEBB IN REACH THIS OCCURRED @ 1958
[2017-07-17 15:36] VITALS: BP 140/69
--- NOTE | 2017-07-17 16:19 | NUR ---
ASSISTED TO BSC
--- NOTE | 2017-07-17 16:19 | NUR ---
RESTING IN BED AT THIS TIME, ALL NEEDS ADDRESSED, CALL WEBB IN REACH.
[2017-07-17 19:10] VITALS: BP 145/56
--- NOTE | 2017-07-17 22:33 | NUR ---
PATIENT RESTING IN BED AT THIS TIME AWAKE ALERT ANDORIENTEDX3. IV SITE TO RIGHT WRIST INTACT WITH IVF PATENT AND INFUSING ORDERED. NO COMPLAINTS AT THIS TIME. CALL LIGHT IN REACH. WILL CONT TO MONITOR.
--- NOTE | 2017-07-18 04:00 | NUR ---
PATIENT RESTING IN BED AND APPEARS SLEEPING AT THIS TIME. CALL LIGHT IN REACH. WILL CONT TO MONITOR.
[2017-07-18 04:52] VITALS: BP 135/64
[2017-07-18 06:40] LABS: HEMATOCRIT 30.3 % (37.0-47.0); HEMOGLOBIN 10.5 g/dl (12.0-16.0); IMMATURE GRANULOCYTES 0.8 % (0.0-1.0); MEAN CELL VOLUME 97.1 fL CALC (80.0-100.0); MEAN CORPUSCULAR HGB 33.7 pG CALC (26.0-32.0); MEAN CORPUSCULAR HGB CONC 34.7 g/L CALC (32.0-36.0); NEUT# 5.42 thou/uL (2.00-7.15); RED BLOOD COUNT 3.12 mill/uL (4.20-5.60); RED CELL DISTRI WIDTH 12.1 % (11.5-15.5)
[2017-07-18 06:49] LABS: ANION GAP 12 (6-22 (CALC)); BUN 13 mg/dL (8-23); BUN/CREATININE RATIO 18 (12-20 (CALC)); CALCIUM 8.9 mg/dL (8.4-10.2); CARBON DIOXIDE 24 mmol/l (22-30); CHLORIDE 104 mmol/l (95-108); CREATININE 0.7 mg/dL (0.5-1.0); GFR > 60 ML/MIN (>=60 (CALC)); GFR FOR AFR.AMER. > 60 ML/MIN (>=60 (CALC)); GLUCOSE 127 mg/dL (82-115); MAGNESIUM 1.9 mg/dL (1.6-2.3); POTASSIUM 4.2 mmol/l (3.5-5.1); SODIUM 136 mmol/l (137-146)
--- NOTE | 2017-07-18 07:00 | NUR ---
RECEIVED BEDSIDE REPORT FROM WENDI Keith RESTING IN BED WITH EYES CLOSED, AWAKENS EASILY. RESPS EVEN AND UNLABORED ON ROOM AIR. #24 RW INFUSING WITHOUT DIFFICULTY, SITE APPEARS HEALTHY. VOICES NO NEEDS AT THIS TIME. PLAN OF CARE DISCUSSED. SAFETY PRECAUTIONS REINFORCED. BED IN LOWEST POSITION WITH WHEELS LOCKED. CALL LIGHT WITHIN REACH. ENCOURAGED PT TO CALL FOR ANY NEEDS.
[2017-07-18 07:40] VITALS: BP 117/67
--- NOTE | 2017-07-18 12:00 | NUR ---
SITTING IN BEDSIDE CHAIR EATING LUNCH. RESPS EVEN AND UNLABORED ON ROOM AIR. #24 RW INFUSING WITHOUT DIFFICULTY, SITE APPEARS HEALTHY. VOICES NO NEEDS AT THIS TIME. CALL LIGHT WITHIN REACH. WILL CONTINUE TO MONITOR.
[2017-07-18 15:16] VITALS: BP 105/71
[2017-07-18 19:30] VITALS: BP 127/76
--- NOTE | 2017-07-18 20:30 | NUR ---
PT RESTING IN SEMI FOWLERS POSITION;PT VOICES NO COMPLAINTS OF PAIN OR DISCOMFORTS;PT REQUESTS SLEEPING MEDICATION AN IS TO BE MEDICATED WITH PRN RESTORIL;ASSESSMENT COMPLETED;#24G TO RIGHT WRIST INFUSING NS W/KCL 20MEQ @ 100ML/HR WELL;RESPIRATIONS EVEN AND UNLABORED ON RA;REDDENING NOTED TO BRAYDEN AREA;SAFETY PRECAUTIONS REINFORCED AND PT EDUCATED TO CALL FOR ASSISTANCE IF NEEDED;FALL PRECAUTIONS IN PLACE WITH CALL LIGHT IN REACH;WILL CONTINUE TO MONITOR
--- NOTE | 2017-07-19 00:25 | NUR ---
PT RESTING IN BED WIDE AWAKE WATCHING TV;PT STATES "I USUALLY DON'T SLEEP AT HOME ANYWAYS";RESPIRATIONS EVEN AND UNLABORED ON RA;PT VOICES NO COMPLAINTS OR CONCERNS AT THIS TIME;IV FLUIDS INFUSING WELL TO RW;FALL PRECAUTIONS IN PLACE WITH CALL LIGHT IN REACH;WILL CONTINUE TO MONITOR
[2017-07-19 04:20] VITALS: BP 132/57
[2017-07-19 04:44] LABS: HEMATOCRIT 29.4 % (37.0-47.0); IMMATURE GRANULOCYTES 1.2 % (0.0-1.0); NEUT# 6.35 thou/uL (2.00-7.15); RED BLOOD COUNT 3.03 mill/uL (4.20-5.60); RED CELL DISTRI WIDTH 12.4 % (11.5-15.5)
[2017-07-19 05:03] LABS: ANION GAP 10 (6-22 (CALC)); BUN 14 mg/dL (8-23); BUN/CREATININE RATIO 22 (12-20 (CALC)); CALCIUM 8.5 mg/dL (8.4-10.2); CARBON DIOXIDE 22 mmol/l (22-30); CHLORIDE 108 mmol/l (95-108); CREATININE 0.7 mg/dL (0.5-1.0); GFR > 60 ML/MIN (>=60 (CALC)); GFR FOR AFR.AMER. > 60 ML/MIN (>=60 (CALC)); GLUCOSE 120 mg/dL (82-115); POTASSIUM 4.8 mmol/l (3.5-5.1); SODIUM 136 mmol/l (137-146)
--- NOTE | 2017-07-19 06:10 | NUR ---
PT APPEARS TO BE SLEEPING IN SUPINE POSITION,EASILY AROUSED;IV FLUIDS INFUSING TO RIGHT WRIST;RESPIRATIONS EVEN AND UNLABORED ON RA;FALL PRECAUTIONS IN PLACE WITH CALL LIGHT IN REACH;WILL CONTINUE TO MONITOR
--- NOTE | 2017-07-19 07:00 | NUR ---
RECEIVED BEDSIDE REPORT FROM LORI MARTE. RESTING IN BED WITH EYES CLOSED, AWAKENS EASILY. RESPS EVEN AND UNLABORED ON ROOM AIR. #24 RW INFUSING WITHOUT DIFFICULTY, SITE APPEARS HEALTHY. VOICES NO NEEDS AT THIS TIME. PLAN OF CARE DISCUSSED. SAFETY PRECAUTIONS REINFORCED. BED IN LOWEST POSITION WITH WHEELS LOCKED. CALL LIGHT WITHIN REACH. ENCOURAGED PT TO CALL FOR ANY NEEDS.
[2017-07-19 07:50] VITALS: BP 140/68
--- NOTE | 2017-07-19 10:45 | NUR ---
DR PIERRE IN WITH PT, NEW ORDERS RECEIVED.
[2017-07-19] MEDS ORDERED: PREDNISONE20 MG PO (11:26)
[2017-07-19] MEDS ORDERED: LYPHOCIN1 GM PO (11:26)
--- NOTE | 2017-07-19 12:00 | NUR ---
SITTING IN BEDSIDE CHAIR. RESPS EVEN AND UNLABORED ON ROOM AIR. #24 RW INFUSING WITHOUT DIFFICULTY, SITE APPEARS HEALTHY. DENIES PAIN OR DISCOMFORT. CALL LIGHT WITHIN REACH.
[2017-07-19 15:32] VITALS: BP 136/66
--- NOTE | 2017-07-19 16:10 | NUR ---
Discharge instructions given. Patient verbalizes understanding of same. Discharged in stable condition via Medical Transport to [facility] with *Other. All belongings sent with pt. TO [facility] VIA MEDICAL TRANSPORT.
--- NOTE | 2017-07-19 16:14 | NUR ---
NURSE TO NURSE REPORT CALLED TO NUBIA MARTE AT [facility].
== END 2017-07-19 16:10 | DRG 372 ==
LOC: ED 14:44 → ED-I 15:43 → ED 15:59 → MS2 16:00
PROVIDERS: Family Medicine; Nurse Practitioner Family; ADMIT Internal Medicine; ATTEND Internal Medicine
DX: A04.71 Enterocolitis due to Clostridium difficile, recurrent (principal); E87.1 Hypo-osmolality and hyponatremia; E86.0 Dehydration; D64.9 Anemia, unspecified; J44.9 Chronic obstructive pulmonary disease, unspecified; B35.6 Tinea cruris; N39.0 Urinary tract infection, site not specified; E03.9 Hypothyroidism, unspecified; E87.6 Hypokalemia; I10 Essential (primary) hypertension; F32.9 Major depressive disorder, single episode, unspecified; R53.81 Other malaise; B96.20 Unspecified Escherichia coli [E. coli] as the cause of diseases classified elsewhere; Z16.24 Resistance to multiple antibiotics; Z85.43 Personal history of malignant neoplasm of ovary

== ENCOUNTER 2017-08-12 14:45 | Inpatient (IN) | payer MEDICARE, OTHER ==
[~2017-08-12] VITALS: Ht 152.4 cm; Wt 47.0 kg
[~2017-08-12 14:45] MED LIST changes: +CYANOCOBAL1000 MCG/M IM; +LYPHOCIN1 GM PO; +MULTIVITAMI1 PO; +PREDNISONE20 MG PO; +TYLENOL325 MG PO
[2017-08-12 15:20] VITALS: BP 125/58
[2017-08-12 17:00] LABS: HEMATOCRIT 33.7 % (37.0-47.0); HEMOGLOBIN 11.5 g/dl (12.0-16.0); IMMATURE GRANULOCYTES 0.6 % (0.0-1.0); MEAN CELL VOLUME 96.3 fL CALC (80.0-100.0); MEAN CORPUSCULAR HGB 32.9 pG CALC (26.0-32.0); MEAN CORPUSCULAR HGB CONC 34.1 g/L CALC (32.0-36.0); NEUT# 4.72 thou/uL (2.00-7.15); RED BLOOD COUNT 3.5 mill/uL (4.20-5.60); RED CELL DISTRI WIDTH 12.2 % (11.5-15.5)
[2017-08-12 19:00] VITALS: BP 102/69
[2017-08-12 20:49] LABS: URINE BILIRUBIN - DIPSTICK NEGATIVE (NEGATIVE); URINE BLOOD DIPSTICK TRACE-INTACT (NEGATIVE); URINE COLOR YELLOW; URINE GLUCOSE - DIPSTICK NEGATIVE (NEGATIVE); URINE KETONE NEGATIVE (NEGATIVE); URINE NITRITE - DIPSTICK NEGATIVE (Negative); URINE PROTEIN - DIPSTICK NEGATIVE (NEG-TRACE); URINE UROBILINOGEN - DIPSTICK 0.2 E.U./dL (0.2)
[2017-08-12 20:50] LABS: URINE CLARITY CLOUDY; URINE LEUK ESTERASE LARGE (NEGATIVE)
[2017-08-12 21:01] LABS: URINE BACTERIA MANY hpf; URINE SQUAMOUS EPITHELIAL CELL FEW EPI/hpf (0-FEW); URINE WBC TNTC WBC/hpf (0-5)
[2017-08-13 04:28] VITALS: BP 115/64
[2017-08-13 04:42] LABS: HEMATOCRIT 34.2 % (37.0-47.0); HEMOGLOBIN 10.9 g/dl (12.0-16.0); MEAN CELL VOLUME 104.6 fL CALC (80.0-100.0); MEAN CORPUSCULAR HGB 33.3 pG CALC (26.0-32.0); MEAN CORPUSCULAR HGB CONC 31.9 g/L CALC (32.0-36.0); RED BLOOD COUNT 3.27 mill/uL (4.20-5.60); RED CELL DISTRI WIDTH 12.3 % (11.5-15.5)
[2017-08-13 04:51] LABS: ANION GAP 12 (6-22 (CALC)); BUN 13 mg/dL (8-23); BUN/CREATININE RATIO 18 (12-20 (CALC)); CALCIUM 9.1 mg/dL (8.4-10.2); CARBON DIOXIDE 23 mmol/l (22-30); CHLORIDE 100 mmol/l (95-108); CREATININE 0.7 mg/dL (0.5-1.0); GFR > 60 ML/MIN (>=60 (CALC)); GFR FOR AFR.AMER. > 60 ML/MIN (>=60 (CALC)); GLUCOSE 98 mg/dL (82-115); POTASSIUM 4.8 mmol/l (3.5-5.1); SODIUM 131 mmol/l (137-146)
[2017-08-13 09:35] VITALS: BP 118/62
[2017-08-13] MEDS ORDERED: MELATONIN3 M1 PO (15:16)
[2017-08-13] MEDS ORDERED: VITAMIN C250 MG PO (15:19)
[2017-08-13 15:29] VITALS: BP 108/66
[2017-08-13 18:30] VITALS: BP 90/52
[2017-08-14 00:23] VITALS: BP 95/54
[2017-08-14 05:43] VITALS: BP 115/71
[2017-08-14 05:55] LABS: HEMATOCRIT 31.3 % (37.0-47.0); HEMOGLOBIN 10.7 g/dl (12.0-16.0); IMMATURE GRANULOCYTES 1.3 % (0.0-1.0); MEAN CELL VOLUME 97.2 fL CALC (80.0-100.0); MEAN CORPUSCULAR HGB 33.2 pG CALC (26.0-32.0); MEAN CORPUSCULAR HGB CONC 34.2 g/L CALC (32.0-36.0); NEUT# 4.12 thou/uL (2.00-7.15); RED BLOOD COUNT 3.22 mill/uL (4.20-5.60); RED CELL DISTRI WIDTH 12.1 % (11.5-15.5)
[2017-08-14 06:09] LABS: ANION GAP 12 (6-22 (CALC)); BUN 17 mg/dL (8-23); BUN/CREATININE RATIO 25 (12-20 (CALC)); CALCIUM 9.2 mg/dL (8.4-10.2); CARBON DIOXIDE 23 mmol/l (22-30); CHLORIDE 101 mmol/l (95-108); CREATININE 0.7 mg/dL (0.5-1.0); GFR > 60 ML/MIN (>=60 (CALC)); GFR FOR AFR.AMER. > 60 ML/MIN (>=60 (CALC)); GLUCOSE 97 mg/dL (82-115); POTASSIUM 4.5 mmol/l (3.5-5.1); SODIUM 131 mmol/l (137-146)
[2017-08-14 08:23] VITALS: BP 122/74
[2017-08-14 15:27] VITALS: BP 108/63
[2017-08-14 18:00] VITALS: BP 107/67
[2017-08-14 23:46] VITALS: BP 106/63
[2017-08-15 05:27] VITALS: BP 118/68
[2017-08-15 05:47] LABS: HEMATOCRIT 30.9 % (37.0-47.0); HEMOGLOBIN 10.5 g/dl (12.0-16.0); IMMATURE GRANULOCYTES 0.6 % (0.0-1.0); MEAN CELL VOLUME 97.2 fL CALC (80.0-100.0); NEUT# 5.14 thou/uL (2.00-7.15); RED BLOOD COUNT 3.18 mill/uL (4.20-5.60); RED CELL DISTRI WIDTH 12.2 % (11.5-15.5)
[2017-08-15 09:33] VITALS: BP 116/72
[2017-08-15 16:14] VITALS: BP 116/70
[2017-08-15 19:18] VITALS: BP 124/79
[2017-08-16 05:00] VITALS: BP 142/86
[2017-08-16 06:22] LABS: HEMATOCRIT 31.9 % (37.0-47.0); HEMOGLOBIN 10.8 g/dl (12.0-16.0); IMMATURE GRANULOCYTES 0.4 % (0.0-1.0); MEAN CELL VOLUME 97.6 fL CALC (80.0-100.0); MEAN CORPUSCULAR HGB CONC 33.9 g/L CALC (32.0-36.0); NEUT# 9.24 thou/uL (2.00-7.15); RED BLOOD COUNT 3.27 mill/uL (4.20-5.60); RED CELL DISTRI WIDTH 12.2 % (11.5-15.5)
[2017-08-16 06:46] LABS: ANION GAP 12 (6-22 (CALC)); BUN 12 mg/dL (8-23); BUN/CREATININE RATIO 19 (12-20 (CALC)); CALCIUM 8.7 mg/dL (8.4-10.2); CARBON DIOXIDE 22 mmol/l (22-30); CHLORIDE 102 mmol/l (95-108); CREATININE 0.6 mg/dL (0.5-1.0); GFR > 60 ML/MIN (>=60 (CALC)); GFR FOR AFR.AMER. > 60 ML/MIN (>=60 (CALC)); GLUCOSE 101 mg/dL (82-115); MAGNESIUM 1.8 mg/dL (1.6-2.3); POTASSIUM 4.4 mmol/l (3.5-5.1); SODIUM 131 mmol/l (137-146)
[2017-08-16 07:12] VITALS: BP 120/60
[2017-08-16 10:29] LABS: C. DIFFICILE TOXIN A&B POSITIVE (NEGATIVE)
[2017-08-16 15:28] VITALS: BP 119/56
[2017-08-16 19:30] VITALS: BP 130/62
[2017-08-17 04:23] VITALS: BP 125/64
[2017-08-17 05:53] LABS: HEMATOCRIT 26.2 % (37.0-47.0); HEMOGLOBIN 9.1 g/dl (12.0-16.0); IMMATURE GRANULOCYTES 0.5 % (0.0-1.0); MEAN CORPUSCULAR HGB 33.3 pG CALC (26.0-32.0); MEAN CORPUSCULAR HGB CONC 34.7 g/L CALC (32.0-36.0); NEUT# 4.32 thou/uL (2.00-7.15); RED BLOOD COUNT 2.73 mill/uL (4.20-5.60); RED CELL DISTRI WIDTH 11.9 % (11.5-15.5)
[2017-08-17 06:21] LABS: ANION GAP 10 (6-22 (CALC)); BUN 10 mg/dL (8-23); BUN/CREATININE RATIO 18 (12-20 (CALC)); CALCIUM 8.1 mg/dL (8.4-10.2); CARBON DIOXIDE 21 mmol/l (22-30); CHLORIDE 104 mmol/l (95-108); CREATININE 0.5 mg/dL (0.5-1.0); GFR > 60 ML/MIN (>=60 (CALC)); GFR FOR AFR.AMER. > 60 ML/MIN (>=60 (CALC)); GLUCOSE 93 mg/dL (82-115); MAGNESIUM 1.7 mg/dL (1.6-2.3); POTASSIUM 3.4 mmol/l (3.5-5.1); SODIUM 132 mmol/l (137-146)
[2017-08-17 07:50] VITALS: BP 136/63
[2017-08-17 15:13] VITALS: BP 109/65
[2017-08-17 19:40] VITALS: BP 117/66
[2017-08-18 05:10] VITALS: BP 138/86
[2017-08-18 06:30] LABS: ANION GAP 9 (6-22 (CALC)); BUN 8 mg/dL (8-23); BUN/CREATININE RATIO 14 (12-20 (CALC)); CALCIUM 8.2 mg/dL (8.4-10.2); CARBON DIOXIDE 23 mmol/l (22-30); CHLORIDE 105 mmol/l (95-108); CREATININE 0.6 mg/dL (0.5-1.0); GFR > 60 ML/MIN (>=60 (CALC)); GFR FOR AFR.AMER. > 60 ML/MIN (>=60 (CALC)); GLUCOSE 92 mg/dL (82-115); MAGNESIUM 1.8 mg/dL (1.6-2.3); POTASSIUM 3.3 mmol/l (3.5-5.1); SODIUM 133 mmol/l (137-146)
[2017-08-18] MEDS ORDERED: LEVOTHYROXIN75 MC1 PO (11:17)
[2017-08-18] MEDS ORDERED: VAGIFEM10 MCG VA (11:19)
[2017-08-18] MEDS ORDERED: INVANZ1 GM IJ (11:21)
[2017-08-18] MEDS ORDERED: DIFICID200 MG PO (11:24)
== END 2017-08-18 12:50 | DRG 690 ==
LOC: MS2 14:45
PROVIDERS: Internal Medicine; Nurse Practitioner Family; ADMIT Internal Medicine; ATTEND Internal Medicine
PROC: 02HV33Z Insertion of Infusion Device into Superior Vena Cava, Percutaneous Approach (ICD-10-PCS; principal; 2017-08-14)
PROC: B518ZZA Fluoroscopy of Superior Vena Cava, Guidance (ICD-10-PCS; 2017-08-14)
DX: N39.0 Urinary tract infection, site not specified (principal); A04.71 Enterocolitis due to Clostridium difficile, recurrent; J44.9 Chronic obstructive pulmonary disease, unspecified; E87.1 Hypo-osmolality and hyponatremia; B35.6 Tinea cruris; E03.9 Hypothyroidism, unspecified; F32.9 Major depressive disorder, single episode, unspecified; I10 Essential (primary) hypertension; B96.20 Unspecified Escherichia coli [E. coli] as the cause of diseases classified elsewhere; R53.81 Other malaise; Z87.440 Personal history of urinary (tract) infections; Z16.12 Extended spectrum beta lactamase (ESBL) resistance; Z85.43 Personal history of malignant neoplasm of ovary; Z59.1 Inadequate housing
CPT/HCPCS: J1335; J3370

== ENCOUNTER 2017-12-15 11:20 | Inpatient (IN) | payer MEDICARE ==
[~2017-12-15] VITALS: Ht 152.4 cm; Wt 55.6 kg
[~2017-12-15 11:20] MED LIST changes: +DIFICID200 MG PO; +LEVOTHYROXIN75 MC1 PO; +MELATONIN3 M1 PO; +VAGIFEM10 MCG VA; +VITAMIN C250 MG PO
[2017-12-15 12:02] LABS: IMMATURE GRANULOCYTES 2.7 % (0.0-1.0); MEAN CELL VOLUME 92.5 fL CALC (80.0-100.0); MEAN CORPUSCULAR HGB 30.9 pG CALC (26.0-32.0); MEAN CORPUSCULAR HGB CONC 33.4 g/L CALC (32.0-36.0); NEUT# 15.03 thou/uL (2.00-7.15); RED BLOOD COUNT 3.72 mill/uL (4.20-5.60); RED CELL DISTRI WIDTH 12.7 % (11.5-15.5)
[2017-12-15 12:03] LABS: HEMATOCRIT 34.4 % (37.0-47.0); HEMOGLOBIN 11.5 g/dl (12.0-16.0)
[2017-12-15 12:14] LABS: PROTHROMBIN TIME 10.9 SECONDS (9.0-12.5)
[2017-12-15 12:19] LABS: ALBUMIN 2.9 g/dL (3.2-5.0); BILIRUBIN, TOTAL 0.4 mg/dL (0.0-1.4); BUN 17 mg/dL (8-23); BUN/CREATININE RATIO 22 (12-20 (CALC)); CARBON DIOXIDE 23 mmol/l (22-30); CREATININE 0.8 mg/dL (0.5-1.0); GFR > 60 ML/MIN (>=60 (CALC)); GFR FOR AFR.AMER. > 60 ML/MIN (>=60 (CALC)); SGOT/AST 16 u/l (9-36); SGPT/ALT 21 u/l (11-66); TOTAL PROTEIN 7.3 g/dL (6.3-8.2)
[2017-12-15 12:23] LABS: ALKALINE PHOSPHATASE 113 u/l (38-126); ANION GAP 17 (6-22 (CALC)); CHLORIDE 91 mmol/l (95-108); POTASSIUM 4.6 mmol/l (3.5-5.1); SODIUM 126 mmol/l (137-146)
[2017-12-15 12:27] LABS: MYOGLOBIN 40 ng/mL (0 - 62)
[2017-12-15 14:16] LABS: URINE BILIRUBIN - DIPSTICK NEGATIVE (NEGATIVE); URINE BLOOD DIPSTICK NEGATIVE (NEGATIVE); URINE COLOR YELLOW; URINE GLUCOSE - DIPSTICK NEGATIVE (NEGATIVE); URINE KETONE NEGATIVE (NEGATIVE); URINE LEUK ESTERASE NEGATIVE (NEGATIVE); URINE NITRITE - DIPSTICK NEGATIVE (Negative); URINE PROTEIN - DIPSTICK NEGATIVE (NEG-TRACE); URINE SPECIFIC GRAVITY 1.015; URINE UROBILINOGEN - DIPSTICK 0.2 E.U./dL (0.2)
[2017-12-15] MEDS ORDERED: ACIDOPHILUS1 CAP (14:40)
[2017-12-15] MEDS ORDERED: VANCOMYCIN PO (14:41)
[2017-12-15] MEDS ORDERED: FLORASTOR250 M1 PO (14:42)
[2017-12-15] MEDS ORDERED: FUROSEMIDE20 MG PO (14:43)
[2017-12-15] MEDS ORDERED: PREDNISONE10 MG PO (14:43)
[2017-12-15] MEDS ORDERED: POTASSI19 PO (14:44)
[2017-12-15 15:30] VITALS: BP 110/53
[2017-12-15 16:22] LABS: URINE CLARITY CLEAR
[2017-12-15 20:00] VITALS: BP 97/48
[2017-12-16 00:12] VITALS: BP 95/51
[2017-12-16 04:08] VITALS: BP 104/54
[2017-12-16 04:49] LABS: HEMATOCRIT 29.2 % (37.0-47.0); HEMOGLOBIN 9.8 g/dl (12.0-16.0); MEAN CELL VOLUME 93.6 fL CALC (80.0-100.0); MEAN CORPUSCULAR HGB 31.4 pG CALC (26.0-32.0); MEAN CORPUSCULAR HGB CONC 33.6 g/L CALC (32.0-36.0); RED BLOOD COUNT 3.12 mill/uL (4.20-5.60); RED CELL DISTRI WIDTH 12.6 % (11.5-15.5)
[2017-12-16 05:02] LABS: ANION GAP 11 (6-22 (CALC)); BUN 16 mg/dL (8-23); BUN/CREATININE RATIO 24 (12-20 (CALC)); CARBON DIOXIDE 23 mmol/l (22-30); CHLORIDE 97 mmol/l (95-108); CREATININE 0.6 mg/dL (0.5-1.0); GFR > 60 ML/MIN (>=60 (CALC)); GFR FOR AFR.AMER. > 60 ML/MIN (>=60 (CALC)); SODIUM 127 mmol/l (137-146)
[2017-12-16 05:08] LABS: POTASSIUM 3.6 mmol/l (3.5-5.1)
[2017-12-16 07:40] VITALS: BP 102/51
[2017-12-16 11:30] VITALS: BP 90/47
[2017-12-16 16:30] VITALS: BP 118/68
[2017-12-16 19:50] VITALS: BP 116/58
[2017-12-17] VITALS: BP 112/57
[2017-12-17 04:05] VITALS: BP 104/51
[2017-12-17 04:39] LABS: ANION GAP 11 (6-22 (CALC)); BUN 12 mg/dL (8-23); BUN/CREATININE RATIO 21 (12-20 (CALC)); CARBON DIOXIDE 23 mmol/l (22-30); CHLORIDE 99 mmol/l (95-108); CREATININE 0.6 mg/dL (0.5-1.0); GFR > 60 ML/MIN (>=60 (CALC)); GFR FOR AFR.AMER. > 60 ML/MIN (>=60 (CALC)); POTASSIUM 3.5 mmol/l (3.5-5.1); SODIUM 130 mmol/l (137-146)
[2017-12-17 04:48] LABS: HEMATOCRIT 30.8 % (37.0-47.0); HEMOGLOBIN 10.2 g/dl (12.0-16.0); IMMATURE GRANULOCYTES 2.8 % (0.0-1.0); MEAN CELL VOLUME 94.5 fL CALC (80.0-100.0); MEAN CORPUSCULAR HGB 31.3 pG CALC (26.0-32.0); MEAN CORPUSCULAR HGB CONC 33.1 g/L CALC (32.0-36.0); NEUT# 9.94 thou/uL (2.00-7.15); RED BLOOD COUNT 3.26 mill/uL (4.20-5.60); RED CELL DISTRI WIDTH 12.7 % (11.5-15.5)
[2017-12-17 08:18] VITALS: BP 118/62
[2017-12-17 11:01] VITALS: BP 93/58
[2017-12-17 15:38] VITALS: BP 106/58
[2017-12-17 16:31] LABS: C. DIFFICILE TOXIN A&B NEGATIVE (NEGATIVE)
[2017-12-17 19:13] VITALS: BP 99/60
[2017-12-18] VITALS (7 sets, daily range): BP systolic 79–128; BP diastolic 48–94
[2017-12-18 06:26] LABS: HEMATOCRIT 33.3 % (37.0-47.0); MEAN CELL VOLUME 93.5 fL CALC (80.0-100.0); MEAN CORPUSCULAR HGB 30.9 pG CALC (26.0-32.0); RED BLOOD COUNT 3.56 mill/uL (4.20-5.60); RED CELL DISTRI WIDTH 12.5 % (11.5-15.5)
[2017-12-18 06:35] LABS: ANION GAP 10 (6-22 (CALC)); BUN 11 mg/dL (8-23); BUN/CREATININE RATIO 21 (12-20 (CALC)); CARBON DIOXIDE 22 mmol/l (22-30); CHLORIDE 102 mmol/l (95-108); CREATININE 0.5 mg/dL (0.5-1.0); GFR > 60 ML/MIN (>=60 (CALC)); GFR FOR AFR.AMER. > 60 ML/MIN (>=60 (CALC)); POTASSIUM 3.5 mmol/l (3.5-5.1); SODIUM 130 mmol/l (137-146)
[2017-12-19] VITALS (7 sets, daily range): BP systolic 95–117; BP diastolic 48–71
[2017-12-19 05:36] LABS: ANION GAP 11 (6-22 (CALC)); BUN 10 mg/dL (8-23); BUN/CREATININE RATIO 19 (12-20 (CALC)); CARBON DIOXIDE 20 mmol/l (22-30); CHLORIDE 102 mmol/l (95-108); CREATININE 0.5 mg/dL (0.5-1.0); GFR > 60 ML/MIN (>=60 (CALC)); GFR FOR AFR.AMER. > 60 ML/MIN (>=60 (CALC)); MAGNESIUM 1.7 mg/dL (1.6-2.3); POTASSIUM 3.2 mmol/l (3.5-5.1); SODIUM 129 mmol/l (137-146)
[2017-12-19 05:50] LABS: HEMATOCRIT 29.9 % (37.0-47.0); HEMOGLOBIN 9.9 g/dl (12.0-16.0); MEAN CELL VOLUME 94.6 fL CALC (80.0-100.0); MEAN CORPUSCULAR HGB 31.3 pG CALC (26.0-32.0); MEAN CORPUSCULAR HGB CONC 33.1 g/L CALC (32.0-36.0); NEUT# 12.74 thou/uL (2.00-7.15); RED BLOOD COUNT 3.16 mill/uL (4.20-5.60); RED CELL DISTRI WIDTH 12.5 % (11.5-15.5)
[2017-12-19 23:49] LABS: URINE BILIRUBIN - DIPSTICK NEGATIVE (NEGATIVE); URINE BLOOD DIPSTICK NEGATIVE (NEGATIVE); URINE COLOR YELLOW; URINE GLUCOSE - DIPSTICK NEGATIVE (NEGATIVE); URINE KETONE NEGATIVE (NEGATIVE); URINE LEUK ESTERASE NEGATIVE (Negative); URINE NITRITE - DIPSTICK NEGATIVE (Negative); URINE PROTEIN - DIPSTICK NEGATIVE (NEG-TRACE); URINE SPECIFIC GRAVITY 1.015; URINE UROBILINOGEN - DIPSTICK 0.2 E.U./dL (0.2)
[2017-12-19 23:51] LABS: URINE CLARITY CLEAR
[2017-12-20 04:52] VITALS: BP 135/79
[2017-12-20 05:31] LABS: HEMATOCRIT 31.8 % (37.0-47.0); HEMOGLOBIN 10.4 g/dl (12.0-16.0); IMMATURE GRANULOCYTES 2.1 % (0.0-1.0); MEAN CELL VOLUME 93.5 fL CALC (80.0-100.0); MEAN CORPUSCULAR HGB 30.6 pG CALC (26.0-32.0); MEAN CORPUSCULAR HGB CONC 32.7 g/L CALC (32.0-36.0); NEUT# 17.29 thou/uL (2.00-7.15); RED BLOOD COUNT 3.4 mill/uL (4.20-5.60); RED CELL DISTRI WIDTH 12.6 % (11.5-15.5)
[2017-12-20 05:39] LABS: ANION GAP 13 (6-22 (CALC)); BUN 11 mg/dL (8-23); BUN/CREATININE RATIO 20 (12-20 (CALC)); CARBON DIOXIDE 22 mmol/l (22-30); CHLORIDE 100 mmol/l (95-108); CREATININE 0.5 mg/dL (0.5-1.0); GFR > 60 ML/MIN (>=60 (CALC)); GFR FOR AFR.AMER. > 60 ML/MIN (>=60 (CALC)); MAGNESIUM 1.7 mg/dL (1.6-2.3); POTASSIUM 3.5 mmol/l (3.5-5.1); SODIUM 133 mmol/l (137-146)
[2017-12-20 08:07] VITALS: BP 103/47
[2017-12-20 11:00] VITALS: BP 104/62
== END 2017-12-20 15:20 | DRG 871 ==
LOC: ED 11:20 → ED-I 14:01 → ED 14:22 → MS2 14:23
PROVIDERS: Emergency Medicine; Nurse Practitioner Family; ADMIT Internal Medicine; ATTEND Internal Medicine
DX: A41.9 Sepsis, unspecified organism (principal); J18.9 Pneumonia, unspecified organism; E46 Unspecified protein-calorie malnutrition; A04.71 Enterocolitis due to Clostridium difficile, recurrent; J44.0 Chronic obstructive pulmonary disease with (acute) lower respiratory infection; N39.0 Urinary tract infection, site not specified; E87.1 Hypo-osmolality and hyponatremia; I10 Essential (primary) hypertension; E03.9 Hypothyroidism, unspecified; F32.9 Major depressive disorder, single episode, unspecified; B96.20 Unspecified Escherichia coli [E. coli] as the cause of diseases classified elsewhere; H91.90 Unspecified hearing loss, unspecified ear; Y95 Nosocomial condition; Z16.12 Extended spectrum beta lactamase (ESBL) resistance; Z85.43 Personal history of malignant neoplasm of ovary; Z87.440 Personal history of urinary (tract) infections; Z92.21 Personal history of antineoplastic chemotherapy; Z90.710 Acquired absence of both cervix and uterus; Z90.722 Acquired absence of ovaries, bilateral; Z86.19 Personal history of other infectious and parasitic diseases; Z68.22 Body mass index [BMI] 22.0-22.9, adult
CPT/HCPCS: J1335